=== PATIENT | male | born 1980 | race Caucasian/White ===

== ENCOUNTER 2018-02-17 15:05 | Emergency (ER) | payer OTHER ==
[2018-02-17 15:24] VITALS: BP 133/87; PULSE 79; RESP 16; TEMP 98.6; O2SAT 95
[2018-02-17] MEDS ORDERED: Oxycodone/Acetaminophen 5/325 mg Tab PO STA (16:57)
--- NOTE | 2018-02-17 17:03 | ED PDOC ---
HPI: Back Time Seen by Provider: 02/17/18 16:21 Chief Complaint (Nursing): Back Pain Chief Complaint (Provider): left lower back pain History Per: Patient History/Exam Limitations: no limitations Onset/Duration Of Symptoms: Days (several days), Worse Since (yesterday) Current Symptoms Are (Timing): Still Present Quality Of Discomfort: "Pain" Associated Symptoms: None Exacerbating Factor(s): Movement Additional Complaint(s): Kristian Kimbrough is a 37 year old male, with no significant past medical history, who presents to the emergency department complaining of left lower back pain onset for several days but worst since yesterday. Patient states pain radiates down the left buttocks and left leg. Pain worsens with movement of the left leg and ambulation. Patient reports several days ago he was doing work around the house, moving heavy furniture and a washing machine. He took x3 Motrin 200mg yesterday with mild relief of pain. He denies any fever, chills or urinary symptoms. No further medical complaints. PMD: None provided. Past Medical History Reviewed: Historical Data, Nursing Documentation, Vital Signs Vital Signs: Last Vital Signs Temp 98.6 F 02/17/18 15:22 Pulse 79 02/17/18 15:22 Resp 16 02/17/18 15:22 BP 133/87 02/17/18 15:22 Pulse Ox 95 02/17/18 15:22 - Medical History PMH: No Chronic Diseases - Surgical History Surgical History: No Surg Hx - Family History Family History: States: Unknown Family Hx - Social History Current smoker - smoking cessation education provided: Yes Alcohol: None Drugs: Denies - Home Medications Home Medications: Ambulatory Orders Medication Instructions Recorded Cyclobenzaprine [Cyclobenzaprine 10 mg PO TID #20 tab 02/17/18 HCl] Ibuprofen [Motrin] 600 mg PO Q6 #20 tab 02/17/18 oxyCODONE/Acetaminophen [Percocet 1 ea PO Q6 PRN #5 tab 02/17/18 5/325 mg Tab] oxyCODONE/Acetaminophen [Percocet 1 ea PO Q6 PRN #5 tab 02/17/18 5/325 mg Tab] - Allergies Allergies/Adverse Reactions: Allergies Allergy/AdvReac Type Severity Reaction Status Date / Time No Known Allergies Allergy Verified 02/17/18 16:57 Review of Systems ROS Statement: Except As Marked, All Systems Reviewed And Found Negative Constitutional: Negative for: Fever, Chills Genitourinary Male: Negative for: Dysuria, Frequency Musculoskeletal: Positive for: Back Pain (left lower), Leg Pain (left ) Physical Exam - Reviewed Nursing Documentation Reviewed: Yes Vital Signs Reviewed: Yes - Physical Exam Appears: Positive for: No Acute Distress Head Exam: Positive for: ATRAUMATIC, NORMAL INSPECTION, NORMOCEPHALIC Skin: Positive for: Normal Color, Warm, Dry Eye Exam: Positive for: Normal appearance, EOMI, PERRL Neck: Positive for: Painless ROM Respiratory: Negative for: Respiratory Distress Back: Positive for: Muscle Spasm, Other (+ Lumbosacral paraspinal tenderness) Extremity: Positive for: Normal ROM (upper and lower extremities). Negative for : Deformity, Swelling Neurologic/Psych: Positive for: Alert, Oriented. Negative for: Motor/Sensory Deficits - ECG O2 Sat by Pulse Oximetry: 95 (RA) Pulse Ox Interpretation: Normal Medical Decision Making Medical Decision Making: Time: 16:21 Initial Impression: Back pain Initial Plan: --Flexeril 10 mg PO --Motrin tab 600 mg PO --Percocet 1 tab PO --Reevaluation Pt on re-eval, doing well. Reports pain greatly improved. Pt ambulating with steady gait, stable for discharge at this time Scribe Attestation: Documented by Jovon Salcedo, acting as a scribe for Mercedez Pederson PA-C Provider Scribe Attestation: All medical record entries made by the Scribe were at my direction and personally dictated by me. I have reviewed the chart and agree that the record accurately reflects my personal performance of the history, physical exam, medical decision making, and the department course for this patient. I have also personally directed, reviewed, and agree with the discharge instructions and disposition. Disposition - Clinical Impression Clinical Impression: Back pain - Patient ED Disposition Is Patient to be Admitted: No - Disposition Disposition: Routine/Home Disposition Time: 18:29 Condition: STABLE Prescriptions: Cyclobenzaprine [Cyclobenzaprine HCl] 10 mg PO TID #20 tab Ibuprofen [Motrin] 600 mg PO Q6 #20 tab oxyCODONE/Acetaminophen [Percocet 5/325 mg Tab] 1 ea PO Q6 PRN #5 tab PRN Reason: Pain, Severe (8-10) oxyCODONE/Acetaminophen [Percocet 5/325 mg Tab] 1 ea PO Q6 PRN #5 tab PRN Reason: Pain, Severe (8-10) Instructions: Low Back Pain (DC) Forms: [facility] (Vietnamese)
== END 2018-02-17 18:31 | disposition home or self-care (01) ==
LOC: H.ER 15:05
DX: M54.5 Low back pain (principal); X50.0XXA Overexertion from strenuous movement or load, initial encounter; F17.200 Nicotine dependence, unspecified, uncomplicated